=== PATIENT | female | born 1960 | race Caucasian/White ===

== ENCOUNTER → 2016-08-05 | Outpatient (CLI) | payer OTHER ==
[2016-08-05 11:05] LABS: BASOPHILS # (AUTO) 0.03 10*3/UL; BASOPHILS % (AUTO) 0.5 % (0-1); EOSINOPHILS # (AUTO) 0.04 10*3/UL; EOSINOPHILS % (AUTO) 0.7 % (0-8); HEMATOCRIT 43.8 % (37.0-47.0); HEMOGLOBIN 14.5 g/dL (12.0-16.0); LYMPHOCYTES # (AUTO) 1.73 10*3/uL; MEAN CORPUSCULAR HEMOGLOBIN 32.2 PG (27-31); MEAN CORPUSCULAR HGB CONC 33.1 g/dL (33-37); MEAN CORPUSCULAR VOLUME 97.1 FL (81-99); MEAN PLATELET VOLUME 10.2 FL (7.4-12.2); MONOCYTES # (AUTO) 0.58 10*3/UL (0.3-0.8); MONOCYTES % (AUTO) 10.1 % (5-15); NEUTROPHILS # (AUTO) 3.36 10*3/UL; NEUTROPHILS % (AUTO) 58.4 % (50-80); RED BLOOD COUNT 4.51 10^6/uL (4.20-5.40)
[2016-08-05 11:10] LABS: BLOOD UREA NITROGEN 12 mg/dL (7-22); CALCIUM 9.7 mg/dL (8.7-10.7); EST GLOMERULAR FILTRATION > 60 (>60 ml/min/1.73m(2)); SERUM ALBUMIN 4.8 g/dL (3.5-4.8)
[2016-08-05 12:20] LABS: PLATELET MORPHOLOGY COMMENT NORMAL MORPHOLOGY (NORM); RBC MORPHOLOGY COMMENT NORMAL MORPHOLOGY (NORM); WBC MORPHOLOGY COMMENT NORMAL MORPHOLOGY (NORM)
[2016-08-06 10:14] LABS: HEP B CORE IGM ANTIBODY Negative (Negative); HEPATITIS A IGM Negative (Negative); HEPATITIS B SURFACE AG Negative (Negative)
== END ==
LOC: MOB LAB 08:19
PROVIDERS: ATTEND Physician Assistant Medical
DX: J30.1 Allergic rhinitis due to pollen (principal); T75.89XA Other specified effects of external causes, initial encounter; F17.200 Nicotine dependence, unspecified, uncomplicated
CPT/HCPCS: 36415; 80053; 85025; 86705; 86709; 86803; 87340